=== PATIENT | female | born 1990 ===

== ENCOUNTER 2023-10-17 09:08 | Outpatient (AMB) | payer OTHER, SELFPAY ==
--- NOTE | 2023-10-17 09:13 | A.OFFPC_ITS ---
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: No Accompanied by: Self / Same As Patient Allergies No Known Allergies [No Known Allergies*] Allergy (Verified 10/17/23 09:37) Medication List - Last Reconciled 10/17/23 by Christopher Arroyo CNP ferrous sulfate 325 mg PO DAILY Tobacco use date assessed: 10/17/23 Dental Screening Dental Screen Date: 10/17/23 Did you have a dental visit in the last 12 months?: Yes Did you have a dental problem in the last 6 months where you did not have access to dental care?: No Was dental information given to patient?: Patient has dentist HPI HPI Comments History of Present Illness Details New patient Prior PCP:?Does not remember name of PCP or practice. She has been utilizing urgent care Last office visit/CPE: Over 7 years Acute issue(s): Anemia -She is on ferrous sulfate 325 mg daily (OTC) Endometriosis -Ovarian cystectomy on 07/2023 Insomnia -She has been have experiencing trouble falling asleep and staying asleep for about a year. She takes otc sleep aid with good effects. She admits to snoring when she sleeps She also notes poor concentration and forgetfulness for about 6 months She sees a therapist, initially for couples therapy, and now for personal issues. She denies mental health issues She generally eats eats healthy. She started home physical exercise 3 weeks ago; 40 minutes, 5 days weekly PMHx: Anemia SurgHx: Laparoscopy endometriosis excision, ovarian cystectomy (2023) FHx: Mom: Thyroid disease. Dad: HTN, DM, alcoholism, PGF: DM, HTN SocHx: Nonsmoker. Drinks 1-2 glasses of wine monthly. Smokes half a join of marijuana every night to help with sleep Last pap smear test was with [facility] in April 2024: normal [facility] Medical History (Updated 10/17/23 @ 10:11 by Christopher Arroyo CNP) Endometriosis Anemia Surgical History (Updated 06/25/24 @ 09:32 by TREMAYNE Wu) H/O laparoscopy H/O ovarian cystectomy Family History (Updated 10/17/23 @ 09:34 by TREMAYNE Wu) Mother Thyroid disease Father High blood pressure Diabetes Alcoholism Paternal Grandfather High blood pressure Diabetes Family/Other High blood pressure Alcoholism Social History Housing: Apartment Patient Tobacco Use Status: Never used Tobacco e-Cigarette/Vaping Use: Never Used Current occupational status: employed Current occupation: Patient Coordinator @ [employer] Cognitive needs: No Hearing needs: No Vision needs: No Questionnaire PHQ-9 Over the last 2 weeks, how often have you been bothered by any of the following problems? 1. Little interest or pleasure in doing things: more than half the days 2. Feeling down, depressed, or hopeless: not at all 3. Trouble falling or staying asleep, or sleeping too much: not at all 4. Feeling tired or having little energy: not at all 5. Poor appetite or overeating: several days 6. Feeling bad about yourself - or that you are a failure or have let yourself or your family down: not at all 7. Trouble concentrating on things, such as reading the newspaper or watching television: not at all 8. Moving or speaking so slowly that other people could have noticed. Or the opposite - being so fidgety or restless that you have been moving around a lot more than usual: not at all 9. Thoughts that you would be better off or of hurting yourself in some way: not at all Total score: 3 Depression Screening Interpretation: Negative Depression Screening Done: Yes 12265 - PHQ-9 Billing: Yes Source: Developed by Drs. Quique Little, Dolores Weems, Reji De La Garza and colleagues, with an educational triston from [employer]. Thrive Questionnaire Date Thrive assessed: 10/17/23 I am a: Patient What is your living situation today?: I have a steady place to live Within the past 12 months, did the food you bought not last and you didn't have the money to get more?: Never true Within the past 12 months, did you worry whether your food would run out before you got money to buy more?: Never true Do you have trouble paying for medicines?: No Do you have trouble getting transportation to medical appointments?: No Do you have trouble paying your heating and electricity bill?: No Do you have trouble taking care of your child, family member or friend?: No Do you have trouble with day-to-day activities such as bathing, preparing meals, shopping, managing finances, etc.?: No Are you currently unemployed and looking for a job?: No Are you interested in more education?: No Please select the resources that you would like help with: None Currently or been in a relationship where the following occur: no concerns reported THRIVE Score: 0 AUDIT C Alcohol Use Questionnaire (AUDIT-C) 1. How often do you have a drink containing alcohol?: 2-3 times a week 2. How many drinks containing alcohol do you have on a typical day when you are drinking?: 1 or 2 3. How often do you have six or more drinks on one occasion?: Never Total Score: 3 HYACINTH-7 AMB Questionnaire HYACINTH-7 Date HYACINTH - 7 assessed: 10/17/23 Feeling nervous, anxious, or on edge: 2 = More than half the days Not being able to stop or control worryin = Not at all Worrying too much about different things: 0 = Not at all Trouble relaxin = Not at all Being so restless that it is hard to sit still: 0 = Not at all Becoming easily annoyed or irritable: 1 = Several days Feeling afraid as if something awful might happen: 0 = Not at all Total HYACINTH-7 score (0-4 normal; 5-9 mild; 10-14 moderate; 15-21 severe): 3 Source: Developed by Drs. Quique Little, Dolores Weems, Reji De La Garza and colleagues, with an educational triston from [employer]. Review of Systems Const Details: Denies chills, Denies fatigue, Denies fever(s), Denies headache(s) and Denies weakness HEENT Denies change in vision, Denies dizziness, Denies headache(s), Denies hearing loss, Denies nasal congestion, Denies sinus pain, Denies sinus pressure and Denies sore throat Card Denies chest pain, Denies lightheadedness, Denies dyspnea and Denies other (palpitations) Resp Denies cough, Denies dyspnea and Denies wheezing GI Denies abdominal pain, Denies melena, Denies hematochezia, Denies change in bowel habits, Denies dyspepsia and Denies nausea Denies hematuria and Denies dysuria Musc Denies abnormal gait, Denies myalgias, Denies arthralgias, Denies numbness and Denies tingling Skin/Breast Denies rash, Denies unusual bruising and Denies wounds Neuro Denies abnormal gait, Denies dizziness, Denies headache(s), Denies memory loss, Denies numbness, Denies Sensory deficit (Neuro), Denies tingling and Denies weakness Psych Denies anxiety, Denies depression and Denies memory loss Endo Denies cold intolerance, Denies fatigue, Denies heat intolerance, Denies polydipsia and Denies polyuria Cullen/Lymph Denies easy bleeding and Denies easy bruising Aller/Immun Denies wheezing Physical exam (Primary Care) Vital Signs: Last Vital Signs Temp 97.8 F 10/17/23 09:14 Pulse 77 10/17/23 09:14 Resp 14 10/17/23 09:14 BP 122/76 10/17/23 09:14 Pulse Ox 99 10/17/23 09:14 Oxygen Delivery Method Room Air 10/17/23 09:14 BMI result Body Mass Index 29.9 Tobacco/Smoking Status: Tobacco use Status Tobacco use date assessed 10/17/23 10/17/23 09:22 Patient Tobacco Use Status Never used Tobacco 10/17/23 10:06 e-Cigarette/Vaping Use Never Used 10/17/23 09:22 PHQ-9: PHQ-9 Score PHQ-9: Total score 3 10/17/23 14:31 Depression Screening Interpretation: Negative Thrive Assessment: Date of Thrive Assessment Date Thrive assessed 10/17/23 10/17/23 09:36 Currently or been in a relationship where the following occur: no concerns reported Const Other: General: no acute distress, well developed, alert and awake Nutritional Appearance: well nourished Orientation/consciousness: patient oriented x3 HENMT Head: Yes normocephalic and Yes atraumatic Ears: hearing grossly normal bilaterally and TM's normal bilaterally General nose exam: Normal external nose present and Normal nares present Mouth: Normal oral and palatal mucosa present and moist mucous membranes Teeth and gingiva: dentition normal Throat: Yes oropharynx normal Eyes Pupils: Equal, round and reactive pupils present and Pupil accommodation reflex normal EOM: EOMs intact bilaterally Neck Neck: Yes normal visual inspection, Yes no lymphadenopathy and Yes trachea midline Thyroid: Thyroid normal Carotids: no bruits Lymphatic: no lymphadenopathy noted Chest Chest palpation & inspection: normal inspection of the chest Resp Effort & Inspection: normal respiratory effort Auscultation: clear to auscultation bilaterally Cardio Rate: regular rate Rhythm: regular rhythm Heart sounds: S1 normal heart sound present, S2 normal heart sound present, no gallops, no murmurs and no rubs Bruits: no abdominal aortic bruits and no carotid bruits GI Palpation (GI): No Abdominal aortic bruit present, Soft to palpation, nontender, No hepatosplenomegaly present and No Rebound tenderness present Auscultation: normal bowel sounds General: Yes no CVA tenderness Back/Spine/Pelvis Back: no CVA tenderness Cervical Spine: cervical ROM normal and No Cervical spine tenderness Thoracic/Lumbar Spine: thoraco-lumbar ROM normal, No pain with thoraco-lumbar ROM, No thoracic spinal tenderness and No lumbar spinal tenderness Skin General: warm and dry. Normal skin color. Normal skin turgor Lesions: no lesions Rashes: no rashes Trauma: no lacerations or abrasions Wounds: no wounds Nails: normal Neuro General: patient oriented x3, gait normal and CN's II-XI intact bilaterally Cranial nerves: Yes Equal, round and reactive pupils present Cognition (Neuro): normal cognition Gait exam (Neuro): Normal gait present Motor exam (neuro): 5/5 motor strength present throughout Sensory Exam: No Sensory deficit (Neuro) Deep tendon reflexes (DTR's): Right patellar reflex intensity grade: 2+ and Left patellar reflex intensity grade: 2+ Extrem General: Yes normal to inspection, No edema and No calf tenderness Psych Appearance: grossly normal Affect: normal affect Attitude: cooperative Thought process: Normal thought process present Assessment and Plan Assessment & Plan (1) Normal physical examination, routine: Code(s): Z00.00 - Encounter for general adult medical examination without abnormal findings Plan: No significant physical restrictions or limitations noted Continue current treatment regimen Healthy diet and routine exercise encouraged Advised to get lab work done and follow-up for telehealth visit for lab reviews in 2-3 weeks Return sooner with symptoms or concerns Verbalized understanding and agreed with the treatment plan (2) Anemia: Code(s): D64.9 - Anemia, unspecified Plan: Reports history of anemia She has been taking [id number] ferrous sulfate 325 mg daily Will check labs and make changes as needed Verbalized understanding and agreed with the plan (3) Insomnia: Code(s): G47.00 - Insomnia, unspecified Plan: She has been have experiencing trouble falling asleep and staying asleep for about a year. She takes otc sleep aid with good effects. She snores when she sleeps. She also has poor concentration and forgetfulness for about 6 months. No anxiety or depression. PHQ-9 and HYACINTH-7 scores are normal Her symptoms may be attributed to sleep apnea Instructed on sleep hygiene Routine exercise encouraged Referred to sleep medicine (4) Snoring: Code(s): R06.83 - Snoring Plan: As above (5) Laboratory tests ordered as part of a complete physical exam (CPE): Code(s): Z00.00 - Encounter for general adult medical examination without abnormal findings Plan: Fasting labs ordered as part of a complete physical exam. Advised to fast for at least 10 hours before getting labs drawn. May drink water Verbalized understanding and agreed with treatment plan. Orders: Orders Lipid Panel 10/17/23 Z00.00 - Encounter for general adult medical examination without abnormal findings Complete Blood Count Auto Diff 10/17/23 Z00.00 - Encounter for general adult medical examination without abnormal findings Comprehensive [place]. Panel Fast 10/17/23 Z00.00 - Encounter for general adult m edical examination without abnormal findings TSH reflex Free T4 10/17/23 Z00.00 - Encounter for general adult medical examination without abnormal findings UA CC w/rflx Micro + Cult 10/17/23 Z00.00 - Encounter for general adult medical examination without abnormal findings Referrals Sleep Medicine Referral G47.00 - Insomnia, unspecified, R06.83 - Snoring Coding Level of Care Code New Pt Level 4 (71378) New Pt Prev Care 18-39yr(84328 Diagnoses Normal physical examination, routine Z00.00 Anemia D64.9 Insomnia G47.00 Snoring R06.83 Laboratory tests ordered as part of a complete physical exam (CPE) Z00.00
[2023-10-17 09:14] VITALS: BP 122/76; PULSE 77; RESP 14; TEMP 36.6; O2SAT 99; BMI 29.9
== END 2023-10-17 10:05 | disposition home or self-care (01) ==
PROVIDERS: Visit Provider Nurse Practitioner Family
DX: Z00.00 Encounter for general adult medical examination without abnormal findings (principal); D64.9 Anemia, unspecified; G47.00 Insomnia, unspecified; R06.83 Snoring
CPT/HCPCS: 99385

== ENCOUNTER 2023-10-17 10:15 | Outpatient (REF) | payer OTHER, SELFPAY ==
[2023-10-17 11:29] LABS: MANUAL DIFF FLAG NO
[2023-10-17 11:49] LABS: Basophils Percent Auto 0.9 % (0-2); Eosinophils Absolute Auto 0.1 X10*3/uL (0.0-0.4); Eosinophils Percent Auto 1.4 % (0-4); Hematocrit 29.6 % (37.0-47.0); Hemoglobin 9.5 g/dl (12.0-16.0); Imm Gran Abs Auto 0.02 X10*3/uL (0.00-0.03); Imm Gran Pct Auto 0.5 % (0.0-0.4); Lymphocytes Absolute Auto 1.5 X10*3/uL (1.2-4.9); Lymphocytes Percent Auto 34.8 % (20-40); Mean Corpuscular HGB Conc 32.1 g/dl (31.0-35.0); Mean Corpuscular Hemoglobin 27.9 pg (27.0-33.0); Mean Corpuscular Volume 86.8 fL (80.0-98.0); Mean Platelet Volume 10.4 fL (9.4-12.3); Monocytes Absolute Auto 0.4 X10*3/uL (0.1-1.2); Monocytes Percent Auto 9.4 % (2-11); Neutrophils Absolute Auto 2.3 x10*3/uL (2.0-8.3); Platelet Count 317 X10*3/uL (160-400); Red Blood Count 3.41 X10*6/uL (4.20-5.50); Red Cell Distribution Width 14.2 % (11.0-16.0); White Blood Count 4.3 X10*3/uL (4.8-10.8)
[2023-10-17 12:16] LABS: Appearance Urine Clear; Color Urine Yellow; Glucose Urine UA Negative (Negative); Leukocyte Esterase Urine Negative (Negative); Nitrite Urine Negative (Negative); PH 6.5 (5.0-9.0); UMIC TRIGGER UACC YES; Urine Blood Small (1+) (Negative); Urine Ketones Negative (Negative); Urine Protein Negative (Neg-Trace)
[2023-10-17 12:19] LABS: Immature Retic Fraction 21.9 % (3.0-15.9); Retic HGB Equivalent 29.2 pg (30.0-35.0); Reticulocyte Percent 1.7 % (0.5-1.8)
[2023-10-17 12:37] LABS: Alanine Aminotransferase 12 U/L (0-31); Albumin Level 4.2 g/dL (3.5-5.0); Alkaline Phosphatase 80 U/L (39-117); Anion Gap 12 (12-20); Aspartate Amino Transferase 15 U/L (5-31); Bilirubin Total 0.3 mg/dL (0.0-1.0); Blood Urea Nitrogen 11 mg/dL (9-16); Calcium 8.7 mg/dL (8.4-10.2); Carbon Dioxide 23 mmol/L (22-29); Chloride 109 mmol/L (96-108); Cholesterol 188 mg/dL (<200); Estimated Glomerular Filt Rate > 60; Glucose Fasting 82 mg/dL (60-99); HDL Cholesterol 47 mg/dL (>40); Iron 245 mcg/dL (30-160); LDL Cholesterol Calculated 127 mg/dL (<100); Percent Iron Saturation 66 % (15-50); Potassium 3.6 mmol/L (3.3-5.1); Sodium 140 mmol/L (135-145); Total Iron Binding Capacity 374 mcg/dL (228-428); Total Protein 7.3 g/dL (6.5-8.0); Triglycerides 74 mg/dL (<150); Unsaturated Iron Binding 129 ug/dL
[2023-10-17 12:46] LABS: Ferritin 6 ng/mL (10-122); TSH reflex Free T4 0.54 uIU/mL (0.32-4.0)
[2023-10-17 12:47] LABS: Bacteria Urine None Seen (None Seen); Hyaline Casts Urine 0-2 /LPF (0-2); RBC Urine 0-2 /HPF (0-2); WBC Urine 0-5 /HPF (0-5)
== END 2023-10-17 10:16 | disposition home or self-care (01) ==
LOC: HO.WFDLDS 10:15
PROVIDERS: Visit Provider Nurse Practitioner Family
DX: Z00.00 Encounter for general adult medical examination without abnormal findings (principal)
CPT/HCPCS: 36415; 80053; 80061; 81001; 81003; 82728; 83540; 84443; 85025; 85045

== ENCOUNTER 2023-11-29 11:56 | Outpatient (REF) | payer OTHER, SELFPAY ==
[2023-11-29 14:17] LABS: Appearance Urine Clear; Color Urine Yellow; Glucose Urine UA Negative (Negative); Leukocyte Esterase Urine Negative (Negative); Nitrite Urine Negative (Negative); Specific Gravity - Urine 1.015 (1.005-1.025); Urine Blood Negative (Negative); Urine Ketones Negative (Negative); Urine Protein Negative (Neg-Trace)
[2023-11-29 14:18] LABS: Hematocrit 30.3 % (37.0-47.0); Hemoglobin 9.8 g/dl (12.0-16.0); Immature Retic Fraction 22.9 % (3.0-15.9); Mean Corpuscular HGB Conc 32.3 g/dl (31.0-35.0); Mean Corpuscular Volume 83.5 fL (80.0-98.0); Mean Platelet Volume 10.3 fL (9.4-12.3); Platelet Count 318 X10*3/uL (160-400); Red Blood Count 3.63 X10*6/uL (4.20-5.50); Red Cell Distribution Width 15.4 % (11.0-16.0); Retic HGB Equivalent 25.1 pg (30.0-35.0); Reticulocyte Percent 1.5 % (0.5-1.8); Reticulocytes Absolute 0.054 X10*6/uL (0.026-0.095)
[2023-11-29 14:55] LABS: Ferritin 5 ng/mL (10-122); Iron 19 mcg/dL (30-160); Percent Iron Saturation 6 % (15-50); Total Iron Binding Capacity 344 mcg/dL (228-428); Unsaturated Iron Binding 325 ug/dL
== END 2023-11-29 11:57 | disposition home or self-care (01) ==
LOC: HO.WFDLDS 11:56
PROVIDERS: Visit Provider Nurse Practitioner Family
DX: Z00.00 Encounter for general adult medical examination without abnormal findings (principal); D64.9 Anemia, unspecified
CPT/HCPCS: 36415; 81003; 82728; 83540; 85027; 85045

== ENCOUNTER 2023-12-05 16:25 | Outpatient (AMB) | payer OTHER, SELFPAY ==
--- NOTE | 2023-12-05 16:13 | A.OFFPC_ITS ---
Intake Visit Reasons: labs follow up Intake Note: Folllow up lab results Allergies No Known Allergies [No Known Allergies*] Allergy (Verified 12/05/23 16:22) Tobacco use date assessed: 10/17/23 Dental Screening Dental Screen Date: 10/17/23 HPI HPI Comments History of Present Illness Details 33-year-old female presents for a [facility] visit for review of recent lab results She admits to taking ferrous sulfate 325 mg daily. She notes that before she was recently notified by our nurse to take her medication daily, she was not consistent with taking it He offers no complaints and denies acute symptoms at this time [facility] Medical History (Updated 11/13/23 @ 14:32 by Christopher Arroyo CNP) Endometriosis Anemia Surgical History (Updated 10/17/23 @ 09:32 by TREMAYNE Wu) H/O laparoscopy H/O ovarian cystectomy Family History (Updated 10/17/23 @ 09:34 by TREMAYNE Wu) Mother Thyroid disease Father High blood pressure Diabetes Alcoholism Paternal Grandfather High blood pressure Diabetes Family/Other High blood pressure Alcoholism Social History Housing: Apartment Patient Tobacco Use Status: Current someday Tobacco user e-Cigarette/Vaping Use: Never Used Current occupational status: employed Current occupation: Patient Coordinator @ [employer] Cognitive needs: No Hearing needs: No Vision needs: No Questionnaire Thrive Questionnaire Date Thrive assessed: 10/17/23 HYACINTH-7 AMB Questionnaire HYACINTH-7 Date HYACINTH - 7 assessed: 10/17/23 Source: Developed by Drs. Quique Little, Dolores Weems, Reji De La Garza and colleagues, with an educational triston from [employer]. Review of Systems Const Details: Const Denies chills, Denies fatigue, Denies fever(s), Denies headache(s) and Denies weakness ENT Denies dizziness and Denies headache(s) Card Denies chest pain, Denies lightheadedness, Denies dyspnea and Denies other (Palpitations) Resp Denies cough, Denies dyspnea, Denies wheezing and Denies other ( shortness of breath) GI Denies abdominal pain, Denies melena, Denies hematochezia, Denies change in bowel habits, Denies dyspepsia and Denies nausea Denies hematuria and Denies dysuria Musc Denies abnormal gait, Denies myalgias, Denies arthralgias, Denies numbness and Denies tingling Skin/Breast Denies rash, Denies unusual bruising and Denies wounds Neuro Denies abnormal gait, Denies dizziness, Denies headache(s), Denies memory loss, Denies numbness, Denies Sensory deficit (Neuro), Denies tingling and Denies weakness Psych Denies anxiety, Denies depression, Denies memory loss Endo Denies cold intolerance, Denies fatigue, Denies heat intolerance, Denies polydipsia and Denies polyuria Aller/Immun Denies wheezing Physical exam (Primary Care) Tobacco/Smoking Status: Tobacco use Status Tobacco use date assessed 10/17/23 12/05/23 16:17 Patient Tobacco Use Status Current someday Tobacco 12/05/23 16:17 e-Cigarette/Vaping Use Never Used 12/05/23 16:17 Thrive Assessment: Date of Thrive Assessment Date Thrive assessed 10/17/23 12/05/23 16:17 Const Other: Telehealth. No physical exam Telehealth Telehealth Telehealth Platform: Telephone Location of provider rendering services: practice address Location of patient: address on file Patient Identification confirmed using: Name, : Yes Telehealth method: voice only Patient verbally consented to treatment: Yes Patient verbally consented to billing insurance company: Yes Patient informed of any privacy concerns related to visit: Yes Assessment and Plan Assessment & Plan (1) Iron deficiency anemia: Code(s): D5. - Iron deficiency anemia, unspecified Plan: Recent labs reviewed with the patient; unremarkable findings except for the following: Low RBC and H&H, 3.36 and 9.8/30.3 respectively Low iron and ferritin levels, 19 and 5 respectively Will increase ferrous sulfate to 325 mg twice daily. Advised to take as prescribed Will recheck CBC and iron studies; advised to get blood work done 2-3 days before her next visit Follow-up in 6 weeks or sooner with symptoms or concerns Verbalized understanding and agreed with the treatment plan Orders: Orders IRON PROFILE 6 Weeks D50.9 - Iron deficiency anemia, unspecified Complete Blood Count no Diff 6 Weeks D50.9 - Iron deficiency anemia, unspecified Ferritin 6 Weeks D50.9 - Iron deficiency anemia, unspecified Medications: Changed From ferrous sulfate 325 mg PO DAILY To ferrous sulfate 325 mg PO BID 30 days 60 tabs 2RF Coding Level of Care Code Tele Est Pt Level 3 (10134) Diagnoses Iron deficiency anemia D50.9 Time Spent (min) 20
== END 2023-12-05 17:19 | disposition home or self-care (01) ==
LOC: HO.HMGFM 16:26
PROVIDERS: Visit Provider Nurse Practitioner Family
DX: D50.9 Iron deficiency anemia, unspecified (principal)
CPT/HCPCS: 99442

== ENCOUNTER 2024-01-26 11:31 | Outpatient (AMB) | payer OTHER, SELFPAY ==
--- NOTE | 2024-01-26 11:33 | MHC.PC.OV ---
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 [employer] Production Required: No Is last menstrual period known: Yes Last menstrual period: 01/06/24 Post menopausal: No Patient : No Allergies No Known Allergies [No Known Allergies*] Allergy (Verified 01/26/24 12:14) Medication List - Last Reconciled 01/26/24 by Christopher Arroyo CNP ferrous sulfate 325 mg PO BID 30 days Tobacco use date assessed: 01/26/24 Dental Screening Dental Screen Date: 01/26/24 Did you have a dental visit in the last 12 months?: Yes Did you have a dental problem in the last 6 months where you did not have access to dental care?: No Was dental information given to patient?: Patient has dentist HPI HPI Comments History of Present Illness Details 33-year-old female presents for iron-deficiency anemia follow-up She admits to taking ferrous sulfate 325 mg twice daily without adverse reactions She offers no complaints and denies acute symptoms at this time She notes that she her HIGH SCHOOL MATH TEACHER prescribed norethindrone acetate for endometriosis. However, her menstrual cycle lasted 3 weeks in November while on the medication. Therefore, the medication was discontinued. She was prescribed a non-OCP medication (does not recall name) which she took for 3 days and her menstruation stopped. Her cycle was regular last month She forgot get CBC, iron studies, and ferritin blood work done as planned for this visit [facility] Medical History (Updated 11/13/23 @ 14:32 by Christopher Arroyo CNP) Endometriosis Anemia Surgical History (Updated 10/17/23 @ 09:32 by TREMAYNE Wu) H/O laparoscopy H/O ovarian cystectomy Family History (Updated 10/17/23 @ 09:34 by TREMAYNE Wu) Mother Thyroid disease Father High blood pressure Diabetes Alcoholism Paternal Grandfather High blood pressure Diabetes Family/Other High blood pressure Alcoholism Social History Housing: Apartment Patient Tobacco Use Status: Current someday Tobacco user e-Cigarette/Vaping Use: Never Used service: No Current occupational status: employed Current occupation: Patient Coordinator @ [employer] Current occupational exposures/hazards: No Cognitive needs: No Hearing needs: No Vision needs: No Female Reproductive History Menstrual Date of last menstrual period: 01/06/24 Questionnaire Thrive Questionnaire Date Thrive assessed: 10/17/23 AUDIT C Alcohol Use Questionnaire (AUDIT-C) 2. How many drinks containing alcohol do you have on a typical day when you are drinking?: 1 or 2 3. How often do you have six or more drinks on one occasion?: Monthly Total Score: 2 HYACINTH-7 AMB Questionnaire HYACINTH-7 Date HYACINTH - 7 assessed: 10/17/23 Source: Developed by Drs. Quique Little, Dolores Weems, Reji De La Garza and colleagues, with an educational triston from [employer]. Review of Systems Const Details: Const Denies chills, Denies fatigue, Denies fever(s), Denies headache(s) and Denies weakness ENT Denies dizziness and Denies headache(s) Card Denies chest pain, Denies lightheadedness, Denies dyspnea and Denies other (Palpitations) Resp Denies cough, Denies dyspnea, Denies wheezing and Denies other ( shortness of breath) GI Denies abdominal pain, Denies melena, Denies hematochezia, Denies change in bowel habits, Denies dyspepsia and Denies nausea Denies hematuria and Denies dysuria Musc Denies abnormal gait, Denies myalgias, Denies arthralgias, Denies numbness and Denies tingling Skin/Breast Denies rash, Denies unusual bruising and Denies wounds Neuro Denies abnormal gait, Denies dizziness, Denies headache(s), Denies memory loss, Denies numbness, Denies Sensory deficit (Neuro), Denies tingling and Denies weakness Endo Denies cold intolerance, Denies fatigue, Denies heat intolerance, Denies polydipsia and Denies polyuria Aller/Immun Denies wheezing Physical exam (Primary Care) Vital Signs: Last Vital Signs Temp 97.7 F 01/26/24 11:41 Pulse 73 01/26/24 11:41 Resp 16 01/26/24 11:41 BP 108/70 01/26/24 11:41 Pulse Ox 98 01/26/24 11:41 Oxygen Delivery Method Room Air 01/26/24 11:41 BMI result Body Mass Index 28.9 Tobacco/Smoking Status: Tobacco use Status Tobacco use date assessed 01/26/24 01/26/24 11:40 Patient Tobacco Use Status Current someday Tobacco 01/26/24 11:35 e-Cigarette/Vaping Use Never Used 01/26/24 11:35 Thrive Assessment: Date of Thrive Assessment Date Thrive assessed 10/17/23 01/26/24 11:35 Const Other: General: no acute distress and well developed Nutritional Appearance: well nourished Orientation/consciousness: patient oriented [facility] Head: Yes normocephalic and Yes atraumatic Eyes General: appearance normal, both eyes and all related structures Pupils: Equal, round and reactive pupils present EOM: EOMs intact bilaterally Resp Effort & Inspection: normal respiratory effort Auscultation: clear to auscultation bilaterally Cardio Rate: regular rate Rhythm: regular rhythm Heart sounds: S1 normal heart sound present, S2 normal heart sound present, no gallops, no murmurs and no rubs GI Palpation (GI): No Abdominal aortic bruit present, Soft to palpation, nontender, No hepatosplenomegaly present and No Rebound tenderness present Auscultation: normal bowel sounds General: Yes no CVA tenderness Back/Spine/Pelvis Back: no CVA tenderness Extrem General: Yes normal to inspection, No edema and No calf tenderness Skin General: warm and dry. Normal skin color. Normal skin turgor Neuro General: patient oriented x3, gait normal and no focal neuro deficit Cranial nerves: Yes Equal, round and reactive pupils present Cognition (Neuro): normal cognition Gait exam (Neuro): Normal gait present Sensory Exam: No Sensory deficit (Neuro) Psych Appearance: grossly normal Affect: normal affect Attitude: cooperative Thought process: Normal thought process present Coding Level of Care Code Est Pt Level 3 (61434) Diagnoses Iron deficiency anemia D50.9 Assessment & Plan Assessment & Plan (1) Iron deficiency anemia: Code(s): D50.9 - Iron deficiency anemia, unspecified Category: Medical Plan: Her anemia is likely due to blood loss from long duration of menstruation while on norethindrone acetate in November Her menstrual cycle was regular last month She did not get CBC, iron studies, and ferritin blood work done but will do so today Will review lab results and call patient with changes or follow-up plan Continue current treatment regimen Verbalized understanding and agreed with the plan
[2024-01-26 11:41] VITALS: BP 108/70; PULSE 73; RESP 16; TEMP 36.5; O2SAT 98; BMI 28.9
== END 2024-01-26 12:28 | disposition home or self-care (01) ==
PROVIDERS: Visit Provider Nurse Practitioner Family
DX: D50.9 Iron deficiency anemia, unspecified (principal)

== ENCOUNTER → 2024-01-26 11:31 | Outpatient (BNVA) | payer OTHER, SELFPAY | PROVIDERS: Visit Provider Nurse Practitioner Family ==

== ENCOUNTER 2024-05-20 12:18 | Outpatient (AMB) | payer BC, SELFPAY ==
--- NOTE | 2024-05-20 12:30 | A.OFFVIS_ITS ---
Vital Signs 05/20/24 12:36 Height 5 ft 2 in Weight 163 lb 8 oz BMI 29.9 BP 110/70 Blood Pressure Location Lt brachial Position Sitting Intake Visit Reasons: INP-Insomnia/Snoring Intake Note: Patient presents for a new patient evaluation for insomnia/snoring. Pt reports fogginess in her memory. Manager Utilization Required: No Accompanied by: Self / Same As Patient Allergies No Known Allergies [No Known Allergies*] Allergy (Verified 05/20/24 12:36) Medication List - Last Reconciled 05/20/24 by Jorge Ludwig PA-C ferrous sulfate 325 mg PO BID 30 days magnesium oxide 400 mg PO DAILY riboflavin (vitamin B2) 100 mg PO DAILY MDD 100mg HPI Comments Details: 34 year old female here for a sleep evaluation. She goes to bed at 10:30 and wakes up at 6:30 and wakes up 3x a night to pee. She snores loudly and has excessive daytime fatigue. Short Term Memory at base is poor forgetting daily tasks, goes down stairs and forgets why she is there. Writes things down, she uses voice notes, multi-tasking all the time. She is taking sleep medicine from [facility] and noted since July 2023 her memory has been worse. MJ at night time, daily, and it helps with her insomnia. Alcohol use socially. Headaches are less frequent now on ferrous sulfate 325mg PO BID. She was getting dizzy had headaches, this has improved with Iron supplementation. Denies RLS, numbness, tingling, pain, cramps, muscle spasms. Her mood fluctuates, she feels overstimulated and irritable at times. She doesn't like crowds. She sees a therapist 1x a month. Denies depression. Diet is good. [facility] Medical History Endometriosis Anemia Surgical History H/O laparoscopy H/O ovarian cystectomy Family History Mother Thyroid disease Father High blood pressure Diabetes Alcoholism Paternal Grandfather High blood pressure Diabetes Family/Other High blood pressure Alcoholism Social History Housing: Apartment Patient Tobacco Use Status: Current someday Tobacco user e-Cigarette/Vaping Use: Never Used service: No Current occupational status: employed Current occupation: Patient Coordinator @ [employer] Current occupational exposures/hazards: No Cognitive needs: No Hearing needs: No Vision needs: No Review of Systems Const All systems reviewed & are unremarkable except as noted in HPI and below Physical Exam Vital Signs: Last Vital Signs BP 110/70 05/20/24 12:36 BMI result Body Mass Index 29.9 Const General: cooperative, comfortable and no acute distress Orientation/consciousness: patient oriented x3 HEENT Face and sinus: Yes normal facial exam and Yes face symmetric Throat: Yes other ([place] score of 3) Eyes Pupils: Equal, round and reactive pupils present Neck Neck: Yes full ROM and Yes supple Neuro General: patient oriented x3 and moves all extremities Cranial nerves: Yes CN's II-XII intact bilaterally, Yes Facial sensation intact/muscles of mastication intact, Yes Equal, round and reactive pupils present, Yes Normal accommodation reflex present, Yes Bilaterally intact EOM present, Yes Nystagmus not present, Yes Normal facial strength present, Yes Midline tongue present, Yes Ability to bilaterally rotate head present and Yes Ability to bilaterally elevate shoulders present Cognition (Neuro): normal cognition Motor exam (neuro): 5/5 motor strength present throughout and Normal motor muscle tone present throughout Deep tendon reflexes (DTR's): Right triceps reflex intensity grade: 2+, Left triceps reflex intensity grade: 2+, Rt Biceps (C5, C6): 2+, Left biceps reflex intensity grade: 2+, Right brachioradialis reflex intensity grade: 2+, Left brachioradialis reflex intensity grade: 2+, Right patellar reflex intensity grade: 2+ and Left patellar reflex intensity grade: 2+ Psych Appearance: grossly normal Mental Status: mental status grossly normal Speech and movement: Normal speech and movement present Affect: normal affect Attitude: cooperative Thought process: Normal thought process present Thought content: Normal thought content present Insight: Good insight present (Psych) Judgement: Good judgement present (Psych) Results Reviewed Results Reviewed: labs MOHINI since starting BC in September 2023 Iron is low Sep and Nov Ferritin is low Sep and Nov Assessment & Plan Assessment & Plan (1) Iron deficiency anemia: Code(s): D50.9 - Iron deficiency anemia, unspecified Category: Medical Qualifiers: Iron deficiency anemia type: chronic blood loss Qualified Code(s): D50.0 - Iron deficiency anemia secondary to blood loss (chronic) (2) Insomnia: Code(s): G47.00 - Insomnia, unspecified Category: Medical Qualifiers: Insomnia type: unspecified Qualified Code(s): G47.00 - Insomnia, unspecified (3) Anxiety: Code(s): F41.9 - Anxiety disorder, unspecified Category: Medical (4) Snoring: Code(s): R06.83 - Snoring Category: Medical Plan HST for Insomnia, daytime sleepiness and snoring. MOHINI: Chronic blood loss: due to her B/C Noreth, continue on Iron supplement Ferrous Sulfate 325mg PO daily. Headaches: Sumatriptan? will revisit this next visit after HST and start on B2 100mg PO daily, Magnesium 400mg PO daily Labs: CBC CMP B12/ Folate, MMA, Homocystiene, Vit D Anxiety: Sertraline 10mg will visit next visit, she is seeing a therapist. 3 month f/u Orders: Orders RT home sleep study Today G47.00 - Insomnia, unspecified, R06.83 - Snoring Medications: New magnesium oxide 400 mg PO DAILY 30 tabs 0RF riboflavin (vitamin B2) 100 mg PO DAILY 30 tabs 3RF headaches MDD 100mg D50.9 - Iron deficiency anemia, unspecified, G47.00 - Insomnia, unspecified citalopram 10 mg PO DAILY 90 days 90 tabs 3RF anxiety MDD 10mg D50.0 - Iron deficiency anemia secondary to blood loss (chronic), F41.9 - Anxiety disorder, unspecified Coding Level of Care Code Est Pt Level 3 (58721) Diagnoses Iron deficiency anemia due to chronic blood loss D50.0 Iron deficiency anemia type: chronic blood loss Insomnia, unspecified type G47.00 Insomnia type: unspecified Anxiety F41.9 Snoring R06.83 Sleep Questionnaire Difficulty falling asleep: Yes Difficulty staying asleep?: Yes Number of arousals: 3-4 Snoring: Yes Witnessed apneas: No Gasping arousals: No Nocturia: Yes GERD: No Vivid dreams: Yes Acting out dreams: No Abnormal behavior in sleep: No Abnormal movements in sleep: No Morning headaches: No Excessive daytime sleepiness: Yes Daytime naps: No Restless legs: No Hallucinations: No Sleep paralysis: No Drop attacks: No Sleep Study: No CPAP: No
[2024-05-20 12:36] VITALS: BP 110/70; BMI 29.9
--- OUTSIDE RECORDS SUMMARY | 2024-05-20 17:08 | XMS_ITS | Data Portability ---
Author Organization [facility], [facility], [place] Address [address] [place] [address] Assessment Encounter Date Assessment Date Assessment LastModified by Organization Details LastModified Time 02/19/2020 02/19/2020 assessment: annular tear vs HNP plan: - The patient was referred to physical therapy for Jose Therapy technique + dural stretch *consider an MRI of the lumbar spine in the future based on improvement in PT She will follow up in two to three weeks to review her symptoms, but was advised to call the office sooner if any worsening symptoms occur. Dr. Avery Singh reviewed the patients medical history and accompanying office notes. He reassessed the pertinent physical exam findings and participated in a lengthy discussion with the patient regarding our treatment recommendations . [email or web address] Not available 02/19/2020 09:32:14 Plan of Treatment Reminders Order Date Submit Date Provider Last Modified By Organization Details Last Modified Time Details Appointments None recorded. Lab rapid SARS CoV + SARS CoV 2 Ag, QL IA, respiratory specimen 2019 020 [email or web address] [place], [address], [place], [address], 0 13:38:19 Referral physical therapist referral - WITH DEREK ONLY 2019 020 [email or web address] [facility] ([facility]), [address], [address], [place], [address], 0 08:21:29 Procedures None recorded. Surgeries None recorded. Imaging None recorded. Medication Orders None recorded. Patient TargetsNo targets recorded. Patient Instructions Encounter Date Encounter Id Patient Instructions Last Modified By Organization Details Last Modified Time 02/19/2020 [id number] Medication risks were reviewed. The patient was educated regarding their condition, treatment options as well as prescribed course of treatment. Risks and benefits as well as alternatives to the proposed treatment were also provided to the patient. They were given the opportunity to have all of their questions answered to their satisfaction. [email or web address] Not available 02/19/2020 08:19:38 Healthy lifestyl e recommendations were made including a tobacco free lifestyle, proper diet, and weight control. [email or web address] Not available 02/19/2020 08:19:38 Reason for Referral Physical Therapist Referral for Low back pain please also provide her with a jose roll for desk chair and car WITH DEREK ONLY Referring Physician: America Leija, Pain Management, Encounter Date: 02/19/2020 Results Created Date Observation Date Name Description Value Unit Range Abnormal Flag Note LastModifiedBy Organization Detail LastModifiedTime 03/27/2003/27/2020 rapid SARS CoV + SARS CoV 2 Ag, QL IA, respi rator y speci men Covid-19 Antigen Test Result negati ve Not Available [address], [place], [address], 03/27/2020 12:34:37 Result Notes None recorded. Problems Name Problem SNOMED Code Status Onset Date Resolution Date Notes Provider Name and Address Organization Details Recorded Time Low back pain 762004477 Active Benson daniels [facility], [facility] 0 08:20:33 Knee pain Active Sitting at desk for a long period of time Benson daniels [facility], [facility] 0 08:20:57 Problem Notes None recorded. Procedures Surgical History Date Name Laterality Status Provider Name and Address Organization Details Recorded Time 0 Covid-19 Antigen Test completed Isamar Arriaza [facility], [facility] 03/27/2020 12:34:37 laparoscopy completed Benson Weems [facility], [facility] 02/19/2020 08:22:49 Imaging Results None recorded. Procedure Notes None recorded. Medical Equipment None Reported. Allergies No known drug allergies Medications Name Sig Start Date Stop Date Status Note LastModified by Organization Details LastModified Time etodolac 400 mg tablet 2019 completed Not Available Not Available Not Available Vitals Date Recorded Body height Body mass index (BMI) Body weight Provider Name and Address Organization Details Last Updated DateTime 02/19/2020 157.48 cm 30 kg/m2 76065.15 g Benson Weems [facility] 02/19/2020 08:20:02 Social History Question Answer Notes LastModified by Organizat ion Details LastModified Time Tobacco Smoking Status Never Smoker Benson Weems [facility] 02/19/2020 08:21:48 What Is Your Level Of Alcohol Consumption? Occasional [email or web address] Information not available 02/19/2020 Auto Related Injury? No [email or web address] Information not available 02/19/2020 Are You Currently Employed? Yes [email or web address] Information not available 02/19/2020 Which Of Your Hands Is Dominant? Right Information not available 02/19/2020 Live Alone Or With Others? Alone [email or web address] Information not available 02/19/2020 Opiod Risk Tool (ORT) Score: 8 [email or web address] Information not available 02/19/2020 Work Related Injury? No [email or web address] Information not available 02/19/2020 Sex: Female Functional Status None recorded. Mental Status None recorded. Family History Relationship Description Onset Age of this Age Resolved Age Notes LastModified by Organization Details LastModified Time Father Type 1 diabetes mellitus [email or web address] Not available 08:21:29 Medical History Condition Response Coronary Artery Disease N Gout N Other N Hyperthyroidism N MRSA N Head Trauma/Injury N Emphysema N Depression N COPD N Pneumonia N Prostate Problems N Gastrointestinal Disease N Spine Problems N Paralysis N Obstructive Sleep Apnea N Anxiety Disorder N Vision or Eye Problems N Arthritis N Acid Reflux (GERD) N Cancer N Stroke N Crohn's Disease N Leg or Foot Ulcers N Neck Injury N Other Sleep Disorders N Arrhythmia N Rheumatoid Arthritis N Headaches N Fibromyalgia N Kidney Disease N Heart Problems N Hospitalizations N Migraines N Kidney or Bladder Problems N Skin Problems N Joint Pain N Encephalitis N Neck Pain N PTSD N Celiac Disease N Meningitis N Urinary Problems N Brain Injury N Ulcers N Bleeding Disorder N Tuberculosis N Cerebral Palsy N AIDS/HIV N Back Problems Y Asthma N Amputation N Substance Abuse N Peripheral Vascular Disease N Vertigo N Sleep Disorder N Hepatitis N Neuropathy N Pulmonary Embolism N Anxiety/Depression N Auto-Immune Disease N Hernia N Ostomy N Lung Disease N Hypothyroidism N Tremor N Pacemaker N Vascular Disease N Orthopedic Problems N Spasticity N Orthotics N Serious Illness or Injuries N Congenital Anomalies N Alcohol Overuse/Alcohol Abuse N Back Injury N High Cholesterol N Meniers N Liver Disease N Parkinson's Disease N Falls N Thyroid Problems N ADD/ADHD N Osteoporosis/Osteopenia N Anemia N Back Pain Y Multiple Sclerosis N Heart Attack (IN) N Mental Illness N Neurological Problems N Diabetes N Brain Tumor N Seizures/Epilepsy N Congestive Heart Failure (CHF) N Hyperlipidemia N Dementia N Lupus N Ankylosing Spondylitis N Epilepsy/Seizures N Sleep Apnea N Mental Problems N Aneurysm N Heart Disease N Hypertension N Osteoporosis N Gynecological HistoryNo gynecological history recorded. Obstetrics History GPAL:G 0 P 0 0 0 0 Past Encounters Encounter ID Performer Location Encounter Start Date Encounter Closed Date Diagnosis/Indication Diagnosis SNOMED-CT Code Diagnosis ICD10 Code Diagnosis Note [id number] America Leija [address] [address] 02/19/2020 08:15:27 02/19/2020 09:19:56 Low back pain 720435461 M54.5 Paresthesi a of lower extremity 659050940 R20.2 [id number] Avery Singh MD [address] [address] 03/27/2020 11:24:38 03/30/2020 15:54:53 Exposure to coronavirus infection 053677765 Z20.828 Health Concerns Section Related Observation LastModified by Organization Detai ls LastModified Time None Recorded Concern Status LastModified by Organization Details LastModified Time None Recorded Advance Directives Directive None Recorded Payers Encounter Date Sequence Insurance Name Policy Number Policy Mcgregor Covered Member ID Mcgregor Member ID Guarantor Name 02/19/2020 1 [place] [employer] [employer] [place] [id number] Phylicia Yee [id number] Phylicia Yee 03/27/2020 1 [place] [employer] [place] [id number] Phylicia Yee [id number] Phylicia Yee Notes Date Note Type Note Provider Name and Address Organization Details Recorded Time 02/19/2020 text/html Lumbar spine/Low er Back Pain GPSReported bypatient.Location: bilateral; all across the low back Quality:aching; stabbing; sharp; deep Severity:pain level 5/10 Duration:1 months Timing:chronic Alleviating Factors:stretching Aggravating Factors:sitting Associated Symptoms:no numbness; no tingling; no change in bowel/bladder habits;weakness(whe n transitioning from seated to standing position); -pain from right side of low back that extends down to knee -right knee gives out Previous Surgery:none Prior Imaging:none Previous Injections:none Previous PT:none Work Related:no Working:regular duty Patient made appointment for low back pain. America daniels, [facility], [facility] 02/19/2020 09:35:54 03/27/2020 text/html The patient has requested COVID antibody testing. The patient states they were {{exposed to* experiencing Covid-19 symptoms}} over the last {{2* 3 4}} months and are concerned they may have {{been exposed to* contracted}} Covid-19. Limitations of antibody testing were reviewed with the patient and they wish to undergo antibody screening. Avery Singh MD [address] [place], [address], [facility], [facility] 03/27/2020 13:00:31 OBGyn Episode No OBEpisode recorded.
== END 2024-05-20 13:09 | disposition home or self-care (01) ==
PROVIDERS: Absent Provider Physician Assistant Medical; PCP Nurse Practitioner Family; Supervising Provider Physician Assistant Medical; Visit Provider Physician Assistant Medical
DX: D50.0 Iron deficiency anemia secondary to blood loss (chronic) (principal); G47.00 Insomnia, unspecified; F41.9 Anxiety disorder, unspecified; R06.83 Snoring
CPT/HCPCS: 99213